=== PATIENT | female | born 1985 | race Caucasian/White ===

== ENCOUNTER 2017-09-22 21:10 | Emergency (ER) | payer OTHER ==
[2017-09-22 21:15] VITALS: BP 140/80; PULSE 77; RESP 16; TEMP 98.8; O2SAT 97
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
[2017-09-22] MEDS ORDERED: MORPHINE SULFATE 2 MG/ML INJ IV PUSH ONE (21:45)
[2017-09-22] MEDS ORDERED: SODIUM CHLORIDE 0.9% FLUSH 10 ML FLUSH IVF PRN (21:45)
[2017-09-22] MEDS ORDERED: LAMO50TA PO (21:52)
[2017-09-22] MEDS ORDERED: SONA5CAP7 PO (21:52)
[2017-09-22 22:28] LABS: AUTOMATED NEUTROPHIL # 6.2 TH/MM3 (1.8-7.7); BASOPHIL % 0.5 % (0.0-2.0); EOSINOPHIL % 0.4 % (0.0-4.0); HEMATOCRIT 38.5 % (35.0-46.0); HEMOGLOBIN 13.1 GM/DL (11.6-15.3); LYMPH % 15.9 % (9.0-44.0); LYMPHOCYTE # 1.2 TH/MM3 (1.0-4.8); MEAN CELL VOLUME 85.8 FL (80.0-100.0); MEAN CORPUSCULAR HEMOGLOBIN 29.3 PG (27.0-34.0); MEAN CORPUSCULAR HGB CONC 34.2 % (32.0-36.0); MEAN PLATELET VOLUME 9.8 FL (7.0-11.0); MONO % 3.7 % (0.0-8.0); MONOCYTE # 0.3 TH/MM3 (0-0.9); NEUT % 79.5 % (16.0-70.0); PLATELET COUNT 193 TH/MM3 (150-450); RED BLOOD COUNT 4.48 MIL/MM3 (4.00-5.30); RED CELL DISTRIBUTION WIDTH 12.7 % (11.6-17.2); WHITE BLOOD COUNT 7.7 TH/MM3 (4.0-11.0)
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
[2017-09-22 22:44] LABS: PROTHROMBIN TIME - PATIENT 10.4 SEC (9.8-11.6)
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
[2017-09-22] MEDS ORDERED: IOHEXOL 350 MG/ML 10 ML VIAL (for RAD DIAG) IVCONTRAST ONE (22:52)
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
[2017-09-22 23:05] LABS: BICARBONATE 28.8 MEQ/L (21.0-32.0); CALCIUM 9.4 MG/DL (8.5-10.1); CREATININE 0.89 MG/DL (0.50-1.00)
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
[2017-09-22] MEDS ORDERED: CYCL10TA PO (23:42)
[2017-09-22] MEDS ORDERED: HYDR-3516 PO (23:42)
== END 2017-09-22 23:53 | disposition home or self-care (01) ==
LOC: NEPD 21:10
DX: S39.012A Strain of muscle, fascia and tendon of lower back, initial encounter (principal); S80.01XA Contusion of right knee, initial encounter; V49.40XA Driver injured in collision with unspecified motor vehicles in traffic accident, initial encounter; Z79.899 Other long term (current) drug therapy; Z98.890 Other specified postprocedural states
CPT/HCPCS: 70450; 71045; 71260; 72125; 72129; 72132; 73564; 74177; 80048; 84703; 85025; 85610; 85730; 86850; 86900; 86901; 96374; 99285; J2270; Q9967; L0150